=== PATIENT | male | born 1965 | race Caucasian/White ===

== ENCOUNTER 2019-01-08 17:25 | Inpatient (IN) | payer OTHER ==
[~2019-01-08] VITALS: Ht 185.4 cm; Wt 119.3 kg
[2019-01-08 17:53] LABS: BASOPHILS ABSOLUTE AUTO 0.06 K/mm3 (0.00-0.23); BASOPHILS PERCENT AUTO 1 % (0-2); EOSINOPHILS ABSOLUTE AUTO 0.25 K/mm3 (0.00-0.68); EOSINOPHILS PERCENT AUTO 3 % (0-6); Hemoglobin 15.2 g/dL (13.5-17.5); IMMATURE GRAN ABSOLUTE AUTO 0.09 K/mm3 (0.00-0.10); IMMATURE GRAN PERCENT AUTO 1 % (0-1); LYMPHOCYTES ABSOLUTE AUTO 4.12 K/mm3 (0.84-5.20); LYMPHOCYTES PERCENT AUTO 43 % (21-46); MONOCYTES ABSOLUTE AUTO 0.62 K/mm3 (0.16-1.47); MONOCYTES PERCENT AUTO 6 % (4-13); Mean Corpuscular HGB 31.7 pg (26.0-34.0); Mean Corpuscular HGB Conc 34.5 g/dL (31.5-36.5); Mean Corpuscular Volume 92 fL (80-100); Mean Platelet Volume 10.1 fL (9.1-12.4); NEUTROPHILS ABSOLUTE AUTO 4.52 K/mm3 (1.96-9.15); NEUTROPHILS PERCENT AUTO 47 % (41-73); Platelet Count 230 K/mm3 (150-400); RDW Coefficient Variation 12.5 % (11.7-14.2); RDW Standard Deviation 42.6 fL (35.1-46.3); White Blood Cell Count 9.66 K/mm3 (4.00-11.30)
[2019-01-08 17:59] LABS: International Normalized Ratio 0.96; Prothrombin Time Results 10.2 Sec (9.7-11.5)
[2019-01-08 18:10] LABS: Alanine Aminotransfer (ALT/SGP 114 U/L (12-78); Albumin, Blood 3.8 g/dL (3.4-5.0); Albumin/Globulin Ratio 1.1 (0.8-1.8); Alk Phos 60 U/L (50-136); Anion Gap 8 mmol/L (6-16); Aspartate Aminotrans (AST/SGOT 70 U/L (12-37); Bilirubin, Total 0.3 mg/dL (0.1-1.0); Blood Urea Nitrogen 15 mg/dL (8-24); Bun/Creatinine Ratio 15.9 (12.0-20.0); CO2, Blood 25 mmol/L (21-32); Calcium, Blood 8.2 mg/dL (8.5-10.1); Chloride, Blood 108 mmol/L (98-108); Creatinine, Blood 0.95 mg/dL (0.60-1.20); Ethanol (Alcohol), Blood, Med 292 mg/dL; Globulin, Blood 3.6 g/dL (2.2-4.0); Glomerular Filtration Rate >60 (60-); Glucose, Blood 141 mg/dL (70-99); Sodium, Blood 141 mmol/L (136-145); Total Protein, Blood 7.4 g/dL (6.4-8.2)
[2019-01-08 19:40] LABS: Creatine Kinase MB 5.5 ng/mL (0.0-3.6); Creatine Kinase MB Index 1.3 (0.0-4.0)
[2019-01-08 20:59] LABS: PCO2 Arterial 45.2 mmHg (35-45); PO2 Arterial 114 mmHg (80-100)
[2019-01-08 21:00] LABS: pH Blood Arterial 7.27 (7.35-7.45)
[2019-01-08 21:35] LABS: Source, Urine Catheter
[2019-01-08 21:39] LABS: Bilirubin, Urine Neg (Neg); Blood, Urine 5+ (Neg); Glucose Qualitative, Urine 3+ (Neg); Ketones, Urine 1+ (Neg); Leukocyte Esterase, Urine 1+ (Neg); Nitrite, Urine Neg (Neg); Protein, Urine 2+ (Neg); Urobilinogen, Urine NORM (Normal)
[2019-01-08 21:50] LABS: Appearance, Urine Hazy (Clear); Color, Urine Red (P-Yellow)
[2019-01-08 21:52] LABS: Bacteria Few /hpf; Red Blood Cells, Urine TNTC /hpf (0-2); Squamous Epithelial Cells Not Seen /hpf (Few); White Blood Cells, Urine 0-2 /hpf (0-5)
[2019-01-08 22:02] LABS: U Amphetamine Screen Not Detected; U Barbituate Screen Not Detected; U Benzodiazapine Screen DETECTED; U Buprenorphine Screen Not Detected; U Cannabinoids Screen Not Detected; U Cocaine Screen Not Detected; U Methadone Screen Not Detected; U Methamphetamine Screen Not Detected; U Opiates Screen Not Detected; U Oxycodone Screen Not Detected; U Phencyclidine Screen Not Detected; U Propoxyphene Screen Not Detected
[2019-01-08 23:00] LABS: Hematocrit 37.9 % (37.0-53.0)
[2019-01-09 04:41] LABS: PCO2 Arterial 45.9 mmHg (35-45); PO2 Arterial 100 mmHg (80-100); pH Blood Arterial 7.34 (7.35-7.45)
[2019-01-09 06:11] LABS: Hematocrit 37.2 % (37.0-53.0); Hemoglobin 12.7 g/dL (13.5-17.5)
[2019-01-09 06:12] LABS: BASOPHILS ABSOLUTE AUTO 0.05 K/mm3 (0.00-0.23); BASOPHILS PERCENT AUTO 1 % (0-2); EOSINOPHILS ABSOLUTE AUTO 0.12 K/mm3 (0.00-0.68); EOSINOPHILS PERCENT AUTO 2 % (0-6); Hematocrit 37.6 % (37.0-53.0); Hemoglobin 12.6 g/dL (13.5-17.5); IMMATURE GRAN ABSOLUTE AUTO 0.02 K/mm3 (0.00-0.10); IMMATURE GRAN PERCENT AUTO 0 % (0-1); LYMPHOCYTES ABSOLUTE AUTO 1.45 K/mm3 (0.84-5.20); LYMPHOCYTES PERCENT AUTO 19 % (21-46); MONOCYTES ABSOLUTE AUTO 0.88 K/mm3 (0.16-1.47); MONOCYTES PERCENT AUTO 12 % (4-13); Mean Corpuscular HGB 31.3 pg (26.0-34.0); Mean Corpuscular HGB Conc 33.5 g/dL (31.5-36.5); Mean Corpuscular Volume 94 fL (80-100); Mean Platelet Volume 9.8 fL (9.1-12.4); NEUTROPHILS ABSOLUTE AUTO 5.04 K/mm3 (1.96-9.15); NEUTROPHILS PERCENT AUTO 67 % (41-73); Platelet Count 184 K/mm3 (150-400); RDW Coefficient Variation 12.9 % (11.7-14.2); RDW Standard Deviation 44.5 fL (35.1-46.3); Red Blood Cell Count 4.02 M/mm3 (4.30-5.90); White Blood Cell Count 7.56 K/mm3 (4.00-11.30)
[2019-01-09 06:23] LABS: Prothrombin Time Results 10.6 Sec (9.7-11.5)
[2019-01-09 06:32] LABS: Alanine Aminotransfer (ALT/SGP 84 U/L (12-78); Albumin, Blood 3.3 g/dL (3.4-5.0); Albumin/Globulin Ratio 1.1 (0.8-1.8); Alk Phos 49 U/L (50-136); Anion Gap 7 mmol/L (6-16); Aspartate Aminotrans (AST/SGOT 63 U/L (12-37); Bilirubin, Total 0.5 mg/dL (0.1-1.0); Blood Urea Nitrogen 14 mg/dL (8-24); Bun/Creatinine Ratio 14.3 (12.0-20.0); CO2, Blood 25 mmol/L (21-32); Calcium, Blood 7.9 mg/dL (8.5-10.1); Chloride, Blood 112 mmol/L (98-108); Creatine Kinase MB 7.8 ng/mL (0.0-3.6); Creatinine, Blood 0.98 mg/dL (0.60-1.20); Globulin, Blood 2.9 g/dL (2.2-4.0); Glomerular Filtration Rate >60 (60-); Glucose, Blood 122 mg/dL (70-99); Magnesium, Blood 1.9 mg/dL (1.6-2.4); Phosphorus, Blood 3.4 mg/dL (2.5-4.9); Potassium, Blood 4.1 mmol/L (3.5-5.5); Sodium, Blood 144 mmol/L (136-145); Total Protein, Blood 6.2 g/dL (6.4-8.2)
[2019-01-09 06:41] LABS: CPK Creatine Kinase 1624 U/L (39-308); Creatine Kinase MB Index 0.5 (0.0-4.0)
--- NOTE | 2019-01-09 07:50 | NUR ---
[facility] AT 0747 INTUBATED ON VENT AC18/450/5/30%. PROPOFOL INFUSING AT 60MCG/KG/MIN AND LR AT 125ML/HR. PT IS AGITATED, MOVING ALL EXTREMETIES, AND NOT LISTENING TO STAFF. PT WILL SQUEESE FINGERS ON COMMAND, HOWEVER.
--- NOTE | 2019-01-09 09:50 | NUR ---
ALEX IN ROOM ASSESSING PT. PLAN IS TO WEAN PROPOFOL, SEDATE WITH ATIVAN/FENTANYL AND EXTUBATE.
--- NOTE | 2019-01-09 10:33 | NUR ---
PT EXTUBATED AT 1032, PLACED ON 2L NC AND SAT'ING 93+
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
[2019-01-09 13:59] LABS: Hematocrit 38.7 % (37.0-53.0); Hemoglobin 13.1 g/dL (13.5-17.5)
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
--- NOTE | 2019-01-09 18:44 | NUR ---
PT U TO CHAIR WITH MINIMAL ASSIST AND ONLY SL ONE PERSON SBA AT THIS TIME. PT CHEST AND RIBS HURTING LESS SETTING UP IN CHAIR. REGULAR DIET ORDERED.
[2019-01-09 20:01] LABS: Hematocrit 36.9 % (37.0-53.0); Hemoglobin 12.6 g/dL (13.5-17.5)
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
[2019-01-10 03:43] LABS: BASOPHILS ABSOLUTE AUTO 0.04 K/mm3 (0.00-0.23); BASOPHILS PERCENT AUTO 1 % (0-2); EOSINOPHILS ABSOLUTE AUTO 0.36 K/mm3 (0.00-0.68); EOSINOPHILS PERCENT AUTO 4 % (0-6); Hematocrit 34.5 % (37.0-53.0); Hemoglobin 11.8 g/dL (13.5-17.5); IMMATURE GRAN ABSOLUTE AUTO 0.03 K/mm3 (0.00-0.10); IMMATURE GRAN PERCENT AUTO 0 % (0-1); LYMPHOCYTES PERCENT AUTO 17 % (21-46); MONOCYTES ABSOLUTE AUTO 0.89 K/mm3 (0.16-1.47); MONOCYTES PERCENT AUTO 11 % (4-13); Mean Corpuscular HGB 31.3 pg (26.0-34.0); Mean Corpuscular HGB Conc 34.2 g/dL (31.5-36.5); Mean Corpuscular Volume 92 fL (80-100); Mean Platelet Volume 10.1 fL (9.1-12.4); NEUTROPHILS ABSOLUTE AUTO 5.64 K/mm3 (1.96-9.15); NEUTROPHILS PERCENT AUTO 68 % (41-73); Platelet Count 174 K/mm3 (150-400); RDW Coefficient Variation 12.9 % (11.7-14.2); RDW Standard Deviation 42.5 fL (35.1-46.3); Red Blood Cell Count 3.77 M/mm3 (4.30-5.90); White Blood Cell Count 8.36 K/mm3 (4.00-11.30)
[2019-01-10 04:07] LABS: Albumin, Blood 3.2 g/dL (3.4-5.0); Anion Gap 7 mmol/L (6-16); Blood Urea Nitrogen 13 mg/dL (8-24); Bun/Creatinine Ratio 15.6 (12.0-20.0); CO2, Blood 28 mmol/L (21-32); Chloride, Blood 105 mmol/L (98-108); Creatinine, Blood 0.84 mg/dL (0.60-1.20); Glomerular Filtration Rate >60 (60-); Glucose, Blood 122 mg/dL (70-99); Phosphorus, Blood 3.1 mg/dL (2.5-4.9); Potassium, Blood 3.6 mmol/L (3.5-5.5); Sodium, Blood 140 mmol/L (136-145)
[2019-01-10 04:25] LABS: CPK Creatine Kinase 1633 U/L (39-308)
[2019-01-10 04:32] LABS: Hematocrit 34.4 % (37.0-53.0); Hemoglobin 11.8 g/dL (13.5-17.5)
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
--- NOTE | 2019-01-10 07:52 | NUR ---
DR. ENGLAND IN, PATIENT STATUS CHANGED TO MEDICAL, NO TELEMETRY, DIET ORDERED.
--- NOTE | 2019-01-10 09:19 | NUR ---
ARELIS, ED, HERE TO SEE PATIENT FOR DR. CONNER, PATIENT COOPERATIVE AND CALM, WILL TAKE 2 MD HOLD OFF AFTER SPEAKING WITH DR. ENGLAND, BRIGHT PRINTER, CARE MANAGEMENT NOTIFIED TO ESTABLISH HEALTH INSURANCE AND PCP FOR PATIENT.
[2019-01-10 10:22] LABS: Hematocrit 35.7 % (37.0-53.0)
--- NOTE | 2019-01-10 10:39 | NUR ---
PATIENT SITTING AT SIDE OF BED, ONION TOPPER NOTIFIED THIS RN, PATIENT C/O POSITIONAL PAIN/SORENESS THROUGHOUT HIS CHEST, ASKED TO SIT IN CHAIR FOR MORE COMFORT, UP TO CHAIR WITH SBA ONLY, PATIENT STATED THAT "THIS FEELS MUCH BETTER", CALL LIGHT IN REACH, WILL CONTINUE TO MONITOR.
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
--- NOTE | 2019-01-10 14:46 | NUR ---
CALLED ARIANE, HR BUSINESS PARTNER CONSULTANT, 2 MD HOLD DISCONTINUED, ARIANE WILL NOTIFY GUY ORNELAS, CANDY MAKER HELPER AND LET MONITOR ROOM KNOW THAT PATIENT IS OFF THE MONITOR.
--- NOTE | 2019-01-10 15:13 | NUR ---
CALLED DR. ENGLAND TO COME AND SIGN RELEASE OF 2 MD HOLD, SHE WILL BE HERE SHORTLY.
--- NOTE | 2019-01-10 15:22 | NUR ---
Offered pt a shower. He said he thinks he will be going home today and will wait until he gets home since he has to break into his house. He says his keys must be in his truck and the other person that lives there isn't home. Feels he will get dirty and have to take another shower once he is in the house.
--- NOTE | 2019-01-10 16:29 | NUR ---
DR. ENGLAND IN, SIGNED HOLD RELEASE, PATIENT TO TRANSFER TO ROOM 302, AWAITING RECEIVING NURSE TO CALL FOR REPORT, WILL TRANSFER TO ROOM 302 VIA W/C.
--- NOTE | 2019-01-10 17:00 | NUR ---
REPORT WAS CALLED TO MONALISA KUO, ON MEDICAL FLOOR, PATIENT TRANSFERRED TO ROOM 302 VIA WHEELCHAIR.
--- NOTE | 2019-01-10 17:20 | NUR ---
PT SETTLED TO ROOM FROM ICU AT 1700. PT A/O FOLLOWS COMMANDS STATES JUST RECEIVED PAIN MED RECENTLY. CALL LITE IN REACH, CALLS APPROP. SITTING IN CHAIR
--- NOTE | 2019-01-10 18:51 | NUR ---
PT PLEASANT SINCE TRANSFER FROM ICU. PAIN HOLDING AT 3-4. PT STATES QUITE TOLERABLE AT THIS TIME. PT AMBULATING TO CHAIR , BED, BENCH AT WINDOW. WATCHING TV. NO OTHER CONCERNS AT THIS TIME. BED IN LOW POSITION, CALL LITE IN REACH, CALLS APPROP
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
[2019-01-11 12:02] LABS: Albumin, Blood 3.5 g/dL (3.4-5.0); Anion Gap 6 mmol/L (6-16); Blood Urea Nitrogen 14 mg/dL (8-24); Bun/Creatinine Ratio 15.7 (12.0-20.0); CO2, Blood 31 mmol/L (21-32); Calcium, Blood 8.9 mg/dL (8.5-10.1); Chloride, Blood 103 mmol/L (98-108); Creatinine, Blood 0.89 mg/dL (0.60-1.20); Glomerular Filtration Rate >60 (60-); Glucose, Blood 123 mg/dL (70-99); Phosphorus, Blood 2.3 mg/dL (2.5-4.9); Potassium, Blood 3.9 mmol/L (3.5-5.5); Sodium, Blood 140 mmol/L (136-145)
[2019-01-11 12:55] LABS: CPK Creatine Kinase 1384 U/L (39-308)
--- NOTE | 2019-01-11 18:02 | NUR ---
PT QUITE PLEASANT TODAY. DID ONLY ASK FOR PAIN MED THIS MARÍA ELENA. 1 PATTIE RELEIVED PAIN TO ACCEPTABLE LEVEL. STARTED FLUIDS THIS AFT. NEW IV PLACED. NO OTHER CONCERNS AT THIS TIME. BED IN LOW POSITION, CALL LITE IN REACH, CALLS APPROP
--- NOTE | 2019-01-12 03:10 | NUR ---
SHIFT SUMMARY PATIENT HAD NO ACUTE CHANGES OBSERVED DURING THE SHIFT. AXOX 4 AND INDEPENDENT IN THE ROOM. DENIES SOB AND N/V. VSS/AFEBRILE. PIV REMAINS INTACT. NS INFUSING AT 100 mL/HR. USES URINAL AT BEDSIDE. COOPERATIVE WITH CARE. PATIENT ABLE TO SLEEP MOST OF THE SHIFT. CALL LIGHT IN REACH. BED IN LOWEST POSITION. WILL CONTINUE TO MONITOR UNTIL DAY SHIFT NURSE ASSUMES CARE.
[2019-01-12 04:31] LABS: Albumin, Blood 3.1 g/dL (3.4-5.0); Anion Gap 5 mmol/L (6-16); Blood Urea Nitrogen 14 mg/dL (8-24); Bun/Creatinine Ratio 15.4 (12.0-20.0); CO2, Blood 31 mmol/L (21-32); CPK Creatine Kinase 920 U/L (39-308); Calcium, Blood 8.5 mg/dL (8.5-10.1); Chloride, Blood 105 mmol/L (98-108); Creatinine, Blood 0.91 mg/dL (0.60-1.20); Glomerular Filtration Rate >60 (60-); Glucose, Blood 109 mg/dL (70-99); Phosphorus, Blood 3.8 mg/dL (2.5-4.9); Potassium, Blood 4.2 mmol/L (3.5-5.5); Sodium, Blood 141 mmol/L (136-145)
[2019-01-12] MEDS ORDERED: LISI20 PO (11:30)
[2019-01-12] MEDS ORDERED: ACET325 PO (11:31)
--- NOTE | 2019-01-12 13:52 | NUR ---
Patient is in the discharge process and states that he has come along way since his arrival at the hospital. 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 I normalize patient's experience, provide pastoral vocational counselor and companionship. Patient responds well and thanks me for believing in him.
--- NOTE | 2019-01-12 14:28 | NUR ---
PT AOX4 AND COOPERATIVE OF CARE. HAD ALL PAPERS REVIEWED AND EDUCATIONAL MATERIAL SENT. NEW MEDICATION FAXED TO [facility] ON [address]. RIDE FOR PT WAS ARRANGED BY CARE MANAGEMENT AND PT ESCORTED TO N ENTRANCE TO [facility]. NO DISTRESS NOTED.
== END 2019-01-12 13:45 | disposition home or self-care (01) | DRG 208 ==
LOC: ER 17:25 → ERHOLD 17:31 → EOR 17:31 → ICUW 17:31 → ER 17:31 → EOR 17:31 → ICUW 20:55 → MEDS 01-10 17:02 → ENPENDDIS 01-12 10:17 → MEDS 01-12 13:45
PROVIDERS: Emergency Medicine; Family Medicine; Internal Medicine Critical Care Medicine; ADMIT Internal Medicine
PROC: 0BH17EZ Insertion of Endotracheal Airway into Trachea, Via Natural or Artificial Opening (ICD-10-PCS; principal; 2019-01-08)
PROC: 5A1935Z Respiratory Ventilation, Less than 24 Consecutive Hours (ICD-10-PCS; 2019-01-08)
DX: J96.02 Acute respiratory failure with hypercapnia (principal); F10.239 Alcohol dependence with withdrawal, unspecified; M62.82 Rhabdomyolysis; D62 Acute posthemorrhagic anemia; R45.851 Suicidal ideations; J98.11 Atelectasis; E87.2 Acidosis; S10.93XA Contusion of unspecified part of neck, initial encounter; F10.129 Alcohol abuse with intoxication, unspecified; I10 Essential (primary) hypertension; E66.9 Obesity, unspecified; V89.2XXA Person injured in unspecified motor-vehicle accident, traffic, initial encounter; I95.9 Hypotension, unspecified; Z78.1 Physical restraint status; R40.2412 Glasgow coma scale score 13-15, at arrival to emergency department
CPT/HCPCS: 31500; 31720; 36415; 36600; 51702; 70450; 70491; 71045; 71260; 72125; 74177; 80053; 80069; 81001; 82550; 82553; 82803; 83690; 83735; 84100; 85014; 85018; 85025; 85610; 85730; 86850; 86900; 86901; 87086; 94002; 94003; 96361-59; 96365-59; 96367-59; 96375-59; 96376-59; 97161; 97165; 99285-25; A9270-GY; C9113; G0378; G0480; J0330; J0360; J1644; J2060; J2250; J2405; J2704; J3010; J3411; J7030; J7040; J7050; J7120; Q9967